=== PATIENT | female | born 1985 | race American Indian/Alaskan Native ===

== ENCOUNTER 2017-05-07 19:07 | Emergency (ER) | payer SELFPAY ==
[2017-05-07 21:05] VITALS: BP 135/94
[2017-05-07] MEDS ORDERED: TYLENOL ONE (21:13)
[2017-05-07] MEDS ORDERED: TYLENOL PO ONE (21:15)
== END 2017-05-07 23:50 | disposition left against medical advice (07) ==
LOC: ED 19:07
DX: M54.9 Dorsalgia, unspecified (principal); Z53.21 Procedure and treatment not carried out due to patient leaving prior to being seen by health care provider